=== PATIENT | male | born 1950 | race Caucasian/White ===

== ENCOUNTER 2016-12-31 05:48 | Day surgery (SDC) | payer BC ==
[~2016-12-31] VITALS: Ht 152.4 cm; Wt 55.8 kg
[~2016-12-31 05:48] MED LIST: ALENDRONATE SOD70 MG PO; ALTACE10 MG PO; CALCIUM + VITA1 EACH PO; CHLORTHALIDONE50 MG PO; FINASTERIDE5 MG PO; MELOXICAM7.5 MG PO; NAPROSYN500 MG PO; NORCO 5/3251 TABLET PO; OCUVITE ADULT1 EACH PO; PRAVACHOL80 MG PO; PROPECIA1 MG PO; SERTRALINE HCL100 MG PO; VITAMIN D2000 UNIT PO; XALATAN2.5 ML BOTH EYES; ZETIA10 MG PO
[2016-12-31 06:23] VITALS: BP 120/85
[2016-12-31] MEDS ORDERED: NORCO 5/3251 TABLET PO (09:49)
[2016-12-31 10:42] VITALS: BP 124/63
[2016-12-31 11:25] VITALS: BP 139/68
== END 2016-12-31 11:42 | disposition home or self-care (01) ==
LOC: SDC 05:48 → NUC 07:00 → SDC 07:00
PROC: 0JQD0ZZ Repair Right Upper Arm Subcutaneous Tissue and Fascia, Open Approach (ICD-10-PCS; principal; 2016-12-31)
PROC: 07B50ZX Excision of Right Axillary Lymphatic, Open Approach, Diagnostic (ICD-10-PCS; principal; 2016-12-31)
PROC: 0JBD0ZZ Excision of Right Upper Arm Subcutaneous Tissue and Fascia, Open Approach (ICD-10-PCS; principal; 2016-12-31)
DX: C43.61 Malignant melanoma of right upper limb, including shoulder (principal); I10 Essential (primary) hypertension; E78.00 Pure hypercholesterolemia, unspecified; Z82.0 Family history of epilepsy and other diseases of the nervous system; Z80.8 Family history of malignant neoplasm of other organs or systems; Z80.3 Family history of malignant neoplasm of breast; Z80.0 Family history of malignant neoplasm of digestive organs
CPT/HCPCS: 78195; 78999; 88305; 88307; 88341 TC; 88342 TC; A9541; J0690; J1100; J2250; J2405; J3010